=== PATIENT | male | born 2000 | race Caucasian/White ===

== ENCOUNTER 2020-04-12 12:19 | Emergency (ER) | payer BC ==
[~2020-04-12] VITALS: Ht 193 cm; Wt 88.0 kg
[2020-04-12 13:13] LABS: BASO # 0.1 x10^3/uL (0.0-0.2); BASO % 1 % (0-3); EOS % 0 % (0-3); HEMATOCRIT 41.1 % (39.0-53.0); HEMOGLOBIN 14.4 g/dL (13.0-17.5); LYMPH # 5.3 x10^3/uL (1.0-4.8); LYMPH % 51 % (24-48); MEAN CORPUSCULAR HEMOGLOBIN 30 pg (25-35); MEAN CORPUSCULAR HGB CONC 35 g/dL (31-37); MEAN CORPUSCULAR VOLUME 86 fL (79-100); MONO # 0.9 x10^3/uL (0.0-1.1); MONO % 9 % (0-9); NEUT % 39 % (31-73); PLATELET COUNT 221 x10^3/uL (140-400); RED BLOOD COUNT 4.81 x10^6/uL (4.30-5.70); RED CELL DISTRIBUTION WIDTH 12.5 % (11.5-14.5); WHITE BLOOD COUNT 10.3 x10^3/uL (4.0-11.0)
[2020-04-12 13:20] LABS: CALCIUM 8.9 mg/dL (8.5-10.1); GFR 95.3; POTASSIUM 3.7 mmol/L (3.5-5.1)
[2020-04-12 13:25] LABS: ALBUMIN 3.8 g/dL (3.4-5.0); ALBUMIN/GLOBULIN RATIO 0.9 (1.0-1.7); C-REACTIVE PROTEIN 18.3 mg/L (0-3.3); TOTAL BILIRUBIN 0.8 mg/dL (0.2-1.0)
--- NOTE | 2020-04-12 13:43 | RAD ---
CHEST AP ONLY Clinical History: Reason: sob / Spl. Instructions: / History: Technique: AP view of the chest was obtained at 04/12/2020 12:40 PM. Comparison: None. Findings: The cardiomediastinal silhouette is normal. The pulmonary vasculature is normal. The lungs and pleural margins are clear. Impression: No evidence of an acute cardiopulmonary process. Electronically signed by: Deuce Stevenson III, MD (04/12/2020 1:40 PM) [id number]
[2020-04-12 14:00] LABS: % BANDS 5 % (0-9); % BASOS 1 % (0-3); % LYMPHS 44 % (24-48)
[2020-04-12 14:06] LABS: % ATYL 16 % (0-0); % MONOS 7 % (0-10); % SEGS 27 % (35-66); PLT ESTIMATE ADEQUATE (ADEQUATE)
--- NOTE | 2020-04-12 14:09 | PHYS DOC ---
Past Medical History Past Medical History: No Pertinent History Past Surgical History: Tonsillectomy Additional Past Surgical Histo: wisdom teeth removal Smoking Status: Current Every Day Smoker Additional Information: "vapes" Alcohol Use: Occasionally General Adult EDM: Chief Complaint: SORE THROAT HPI: HPI: Patient is a 19 year old male who presents with shortness of breath, sore throat, fatigue. Patient states that 2 days ago he developed a sore throat and a feeling like his throat was closing. He then developed shortness of breath. He has had a mild cough. He has not had any known fevers. 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 He states that he wears a mask and that they check his temperature every day and it is been normal. He has not been around anybody ill that he knows of. Review of Systems: Review of Systems: General: Denies fever, chills, sweats, fatigue Eyes: Denies drainage, blurred vision HENT: Reports rhinorrhea, sore throat Respiratory: Reports cough, shortness of breath Cardiac: Denies edema, palpitations, chest pain GI: Denies abdominal pain, N/V MSK: Denies back pain, neck pain Skin: Denies rash, jaundice Neuro: Denies headache, dizziness Psychiatric: Denies SI/HI Heart Score: Risk Factors: Risk Factors: DM, Current or recent (<one month) smoker, HTN, HLP, family history of CAD, obesity. Risk Scores: Score 0 - 3: 2.5% MACE over next 6 weeks - Discharge Home Score 4 - 6: 20.3% MACE over next 6 weeks - Admit for Clinical Observation Score 7 - 10: 72.7% MACE over next 6 weeks - Early Invasive Strategies Allergies: Allergies: Allergies Coded Allergies Type Severity Reaction Last Updated Verified No Known Drug Allergies 04/12/20 No Physical Exam: PE: Constitutional: Well developed, well nourished, Cooperative, NAD, non-toxic appearing HEENT: Normocephalic, atraumatic, oropharynx moist, EOMI, PERRL, no drainage from eyes, normal conjunctiva Neck: Supple, normal range of motion, no stridor Cardiovascular: RRR, 2+ radial pulses bilaterally, no edema Respiratory: CTA bilaterally, no respiratory distress, no wheezing/crackles Abdomen: Soft, nontender, nondistended, no masses Skin: Warm, dry, intact Extremities: No obvious deformities Neurologic: Alert and Oriented x3, motor and sensory function grossly normal, no focal deficits Psychologic: Normal affect, normal judgment, normal mood. No SI/HI Current Patient Data: Labs: Laboratory Tests Test 04/12/20 13:02 White Blood Count 10.3 x10^3/uL (4.0-11.0) Red Blood Count 4.81 x10^6/uL (4.30-5.70) Hemoglobin 14.4 g/dL (13.0-17.5) Hematocrit 41.1 % (39.0-53.0) Mean Corpuscular Volume 86 fL (79-100) Mean Corpuscular Hemoglobin 30 pg (25-35) Mean Corpuscular Hemoglobin Concent 35 g/dL (31-37) Red Cell Distribution Width 12.5 % (11.5-14.5) Platelet Count 221 x10^3/uL (140-400) Neutrophils (%) (Auto) 39 % (31-73) Lymphocytes (%) (Auto) 51 % (24-48) H Monocytes (%) (Auto) 9 % (0-9) Eosinophils (%) (Auto) 0 % (0-3) Basophils (%) (Auto) 1 % (0-3) Neutrophils # (Auto) 4.0 x10^3/uL (1.8-7.7) Lymphocytes # (Auto) 5.3 x10^3/uL (1.0-4.8) H Monocytes # (Auto) 0.9 x10^3/uL (0.0-1.1) Eosinophils # (Auto) 0.0 x10^3/uL (0.0-0.7) Basophils # (Auto) 0.1 x10^3/uL (0.0-0.2) Platelet Estimate Pending D-Dimer (Dayan) 2.31 ug/mlFEU (0.00-0.50) H Sodium Level 135 mmol/L (136-145) L Potassium Level 3.7 mmol/L (3.5-5.1) Chloride Level 100 mmol/L (98-107) Carbon Dioxide Level 23 mmol/L (21-32) Anion Gap 12 (6-14) Blood Urea Nitrogen 9 mg/dL (8-26) Creatinine 1.0 mg/dL (0.7-1.3) Estimated GFR (Cockcroft-Gault) 95.3 BUN/Creatinine Ratio 9 (6-20) Glucose Level 99 mg/dL (70-99) Calcium Level 8.9 mg/dL (8.5-10.1) Total Bilirubin 0.8 mg/dL (0.2-1.0) Aspartate Amino Transferase (AST) 192 U/L (15-37) H Alanine Aminotransferase (ALT) 484 U/L (16-63) H Alkaline Phosphatase 200 U/L (46-116) H Lactate Dehydrogenase 442 U/L (85-227) H Creatine Kinase 51 U/L (39-308) C-Reactive Protein, Quantitative 18.3 mg/L (0-3.3) H Total Protein 8.0 g/dL (6.4-8.2) Albumin 3.8 g/dL (3.4-5.0) Albumin/Globulin Ratio 0.9 (1.0-1.7) L Laboratory Tests 04/12/20 13:02 Laboratory Tests 04/12/20 13:02 Vital Signs: Vital Signs Date Time Temp Pulse Resp B/P (MAP) Pulse Ox O2 Delivery O2 Flow Rate FiO2 04/12/20 12:34 99.0 104 16 153/85 (107) 97 Room Air 99.0 EKG: EKG: [] Radiology/Procedures: Radiology/Procedures: [] Course & Med Decision Making: Course & Med Decision Making Pertinent Labs and Imaging studies reviewed. (See chart for details) Patient is a 19-year-old male who presents to the emergency room with shortness of breath, sore throat, cough. At this time there is concern for the novel coronavirus 19. Risk stratifying work-up was ordered including chest x-ray, d- dimer, CPK, CRP, LDH, troponin, ferritin, CBC, CMP. Due to concern of COVID-19 I have discussed the importance of quarantining with the patient. I have discussed with them that they should avoid grocery stores, gas stations, pharmacies, work, friends/family's homes. I discussed with him that it is important that they do not expose themselves to anyone else for the next 14 days. Chest x-ray does show infiltrates at this time and patient will be treated with empiric antibiotics. I have discussed with the patient the course of the illness and we have discussed strict return precautions. At this time patient does not need admission as they are stable, however it is possible that they may get worse over the next few days and we have discussed the importance of coming back if they develop severe shortness of breath or any other symptoms that they are concerned about. Patient's test results and vitals while in the ED were fully reviewed and discussed with the patient. Patient is stable and at this time does not need admission to the hospital. We have discussed strict return precautions and the importance of following up with their Primary Care Physician. Patient stated understanding and was given an opportunity to ask any questions. Dragon Disclaimer: GreenLancer Disclaimer: This electronic medical record was generated, in whole or in part, using a voice recognition dictation system. COVID-19 Patient Risks: Age 65 or older: No Sign of co-morbidity: No Exp to person + for COVID: No Exp to PUI: No Travel from affected area: No Lower respiratory symptoms: Yes Fever: No Other: No PPE Use: Full PPE with N95 mask or PAPR: Yes Departure Departure Impression: Primary Impression: Suspected 2019 novel coronavirus infection Disposition: HOME, SELF-CARE Condition: STABLE Referrals: NO PCP (PCP) Scripts Benzonatate (TESSALON PERLE) 100 Mg Capsule 1 CAP PO TID for cough, #21 CAP Prov: NEGRO MENDES MD 04/12/20 Albuterol Sulfate (PROAIR HFA INHALER) 8.5 Gm Hfa.aer.ad 2 PUFF IH PRN Q4-6HRS PRN for wheezing for 21 Days, #1 INHALER 0 Refills Prov: NEGRO MENDES MD 04/12/20 Azithromycin (ZITHROMAX TRI-RENETTA) 500 Mg Tablet 500 MG PO DAILY for 5 Days, #5 TAB Prov: NEGRO MENDES MD 04/12/20 Justicifation of Admission Dx: Justifications for Admission: Justification of Admission Dx: No NEGRO MENDES MD Apr 12, 2020 14:09
[2020-04-12] MEDS ORDERED: AZIT500T2 PO (14:47)
[2020-04-12] MEDS ORDERED: BENZ100C PO (14:47)
[2020-04-12] MEDS ORDERED: ALBU2.5V8 IH (14:47)
[2020-04-12] MEDS ORDERED: DEXAMETHASONE SOD PHOS 4 MG/ML VIAL IM ONE (15:00)
[2020-04-12 15:30] VITALS: BP 127/68
== END 2020-04-12 15:32 | disposition home or self-care (01) ==
LOC: ER 12:19
DX: Z20.828 Contact with and (suspected) exposure to other viral communicable diseases (principal); J02.9 Acute pharyngitis, unspecified; R06.02 Shortness of breath; R05 Cough; F17.200 Nicotine dependence, unspecified, uncomplicated
CPT/HCPCS: 36415; 71045; 80053; 82550; 83615; 84484; 85007; 85025; 85379; 86140; 87070; 87880; 96372; 99284; J1100; U0003; C9803-CS